=== PATIENT | male | born 1950 | race Two or more races ===

== ENCOUNTER 2019-02-09 06:13 | Inpatient (IN) | payer MEDICARE, BC ==
[2019-02-09 06:52] LABS: Basophils % (A) 0 %; Eosinophils # (A) 0.1 k/uL (0-0.7); Eosinophils % (A) 2 %; HCT 43.8 % (39.0-53.0); HGB 14.3 gm/dL (13.0-17.5); Lymphocytes # (A) 0.8 k/uL (1.0-4.8); Lymphocytes % (A) 12 %; MCH 29.6 pg (25.0-35.0); MCHC 32.7 g/dL (31.0-37.0); MCV 90.4 fL (80.0-100.0); Mean Platelet Volume 6.8; Monocytes # (A) 0.3 k/uL (0-1.0); Monocytes % (A) 5 %; Neutrophils # (A) 5.6 k/uL (1.3-7.7); Neutrophils % (A) 81 %; Platelet Count 197 k/uL (150-450); RBC 4.84 m/uL (4.30-5.90); RDW 13.1 % (11.5-15.5)
--- NOTE | 2019-02-09 06:58 | XR ---
EXAMINATION TYPE: XR chest 2V DATE OF EXAM: 02/09/2019 COMPARISON: Chest x-ray March 12, 2018 HISTORY: Chest pain. TECHNIQUE: Frontal and lateral views of the chest are obtained. FINDINGS: Overlying EKG leads are present. There is no focal air space opacity, pleural effusion, or pneumothorax seen. The cardiac silhouette size is within normal limits. The osseous structures are intact. IMPRESSION: No acute process. No significant change from prior.
[2019-02-09 07:19] LABS: ALT 30 U/L (21-72); AST 16 U/L (17-59); Albumin 3.8 g/dL (3.5-5.0); Alkaline Phosphatase 61 U/L (38-126); Anion Gap 6 mmol/L; Blood Urea Nitrogen 11 mg/dL (9-20); Calcium 9.4 mg/dL (8.4-10.2); Carbon Dioxide 28 mmol/L (22-30); Chloride 106 mmol/L (98-107); Glucose 142 mg/dL (74-99); Magnesium 1.7 mg/dL (1.6-2.3); Potassium 3.8 mmol/L (3.5-5.1); Sodium 140 mmol/L (137-145); Total Bilirubin 1.1 mg/dL (0.2-1.3); Total Protein 6.6 g/dL (6.3-8.2)
[2019-02-09 07:28] LABS: Partial Thromboplastin Time 21.6 sec (22.0-30.0); Prothrombin Time 10.7 sec (9.0-12.0)
[2019-02-09] MEDS ORDERED: HEPARIN SODIUM,PORCINE 5,000 UNIT/ML 1 ML VIAL IV ONE (07:55)
--- NOTE | 2019-02-09 08:05 | ED ---
Chest Pain HPI - General Chief Complaint: Chest Pain Stated Complaint: chest pain Time Seen by Provider: 02/09/19 06:14 Source: patient, family, EMS Mode of arrival: EMS Limitations: no limitations - History of Present Illness Initial Comments: Patient is a 68-year-old male who presents the ED today via EMS for evaluation of chest pain lightheadedness and near-syncope. Patient reports he woke this morning and had some slight retrosternal chest pressure he went downstairs to drink some tea with honey however his vision began to darken and he felt like he was given a pass out. He attempted to call his on her cell phone because she was upstairs that she didn't answer. He was then able to walk upstairs but upon getting up stairs he again fell his vision darkened felt that he was going to pass out. He asked his to drive him to the hospital however he felt too unwell to get up off the floor and then requested that his call 911. Patient reports he was seen and evaluated by cardiology approximately 3 years ago he has not followed up. He has no known cardiac disease no known arrhythmias. He is a nonsmoker. EMS reports that when they arrived on scene the patient was noted to be bradycardic with a heart rate in the 30s and a blood pressure of 80s over 50s. IV access was obtained less than 100 mL of fluids were infused and the patients heart rate improved to the 70s blood pressure improved to 1 teens over 70s. Patient remains stable during transport. - Related Data Home Medications Medication Instructions Recorded Confirmed Aspirin EC [Ecotrin Low Dose] 81 mg PO DAILY 02/09/19 02/09/19 Ubidecarenone [Co Q-10] 100 mg PO DAILY 02/09/19 02/09/19 Allergies Allergy/AdvReac Type Severity Reaction Status Date / Time No Known Allergies Allergy Verified 02/09/19 07:38 Review of Systems ROS Statement: Those systems with pertinent positive or pertinent negative responses have been documented in the HPI. ROS Other: All systems not noted in ROS Statement are negative. EKG Findings - EKG Comments: EKG Findings:: EKG obtained at 6:23 AM, rate of 74 rhythm is sinus there is leftward axis normal intervals, ND 160, QRS [address] elevations or depressions no evidence of acute ischemia or infarction Past Medical History Past Medical History: No Reported History History of Any Multi-Drug Resistant Organisms: None Reported Past Surgical History: Hernia Repair, Orthopedic Surgery Past Psychological History: Anxiety Smoking Status: Never smoker Past Alcohol Use History: Occasional Past Drug Use History: None Reported General Exam - General Exam Comments Initial Comments: Physical Exam GENERAL: Patient is well-developed and well-nourished. Patient is nontoxic and well- hydrated and is in no distress. HENT: Normocephalic, Atraumatic. EYES: PERRL, EOMI PULMONARY: Unlabored respirations. No audible rales rhonchi or wheezing was noted. CARDIOVASCULAR: There is a regular rate and rhythm without any murmurs gallops or rubs. ABDOMEN: Soft and nontender with normal bowel sounds. SKIN: Skin is clear with no lesions or rashes and otherwise unremarkable. : Deferred NEUROLOGIC: Patient is alert and oriented x3. Moving all extremities spontaneously MUSCULOSKELETAL: Normal extremities with adequate strength and full range of motion. No lower extremity swelling or edema. No calf tenderness. PSYCHIATRIC: Normal psychiatric evaluation. Limitations: no limitations Limitations: no limitations Course Vital Signs 02/09/19 02/09/19 06:17 07:55 Temperature 97.9 F Pulse Rate 63 79 Respiratory 16 18 Rate Blood Pressure 104/78 97/78 O2 Sat by Pulse 98 95 Oximetry Chest Pain MDM - [facility] Patient was seen and evaluated history was obtained from patient and EMS Patient with near syncopal episode chest pressure discomfort, patient is noted be hypertensive and bradycardic upon EMS arrival this resolved with IV fluids Cardiac workup was initiated and an EKG was ordered for evaluation of chest pain except EKG is nonischemic bedside labs are unremarkable however given the patient's age, risk factors and vital signs upon EMS arrival I do feel he warrants further evaluation by cardiology. Patient care was discussed with admitting physician Dr. Pham who accepts the admission with consult to cardiology. Disposition Clinical Impression: Chest pain Disposition: ADMITTED IP TO THIS HOSP Condition: Stable Is patient prescribed a controlled substance at d/c from ED?: No Referrals: Augustin Dixon MD [Primary Care Provider] - 1-2 days
[2019-02-09] MEDS: HEPARIN SOD,PORK IN 0.45% NACL 25,000 UNIT in 0.45% NACL 1 250ML.BAG IV SCH (08:24)
--- NOTE | 2019-02-09 13:47 | ECHOF ---
Referral Reason:chest pain MEASUREMENTS -------- HEIGHT: 175.3 cm WEIGHT: 75.7 kg BP: 107/78 RVIDd: 2.9 cm (< 3.3) IVSd: 1.3 cm (0.6 - 1.1) LVIDd: 3.4 cm (3.9 - 5.3) LVPWd: 1.2 cm (0.6 - 1.1) IVSs: 1.8 cm LVIDs: 2.3 cm LVPWs: 1.6 cm LA Diam: 2.9 cm (2.7 - 3.8) LAESV Index (A-L): 24.77 ml/m Ao Diam: 3.7 cm (2.0 - 3.7) AV Cusp: 2.0 cm (1.5 - 2.6) MV EXCURSION: 12.972 mm (> 18.000) MV EF SLOPE: 36 mm/s (70 - 150) EPSS: 0.5 cm MV E Denzel: 0.76 m/s MV DecT: 298 ms MV A Denzel: 0.93 m/s MV E/A Ratio: 0.81 RAP: 5.00 mmHg RVSP: 27.81 mmHg FINDINGS -------- Sinus rhythm. This was a technically good study. The left ventricular size is normal. There is mild concentric left ventricular hypertrophy. Overa ll left ventricular systolic function is normal with, an EF between 60 - 65 %. The right ventricle is normal in size. Normal LA size by volume 22+/-6 ml/m2. The right atrium is normal in size. The aortic valve is trileaflet and appears structurally normal. The mitral valve is normal. The tricuspid valve appears structurally normal. There is no pulmonic regurgitation present. The aortic root size is normal. Normal inferior vena cava with normal inspiratory collapse consistent with estimated right atrial pre ssure of 5 mmHg. There is no pericardial effusion. CONCLUSIONS -------- 1. Sinus rhythm. 2. This was a technically good study. 3. The left ventricular size is normal. 4. There is mild concentric left ventricular hypertrophy. 5. Overall left ventricular systolic function is normal with, an EF between 60 - 65 %. 6. The right ventricle is normal in size. 7. Normal LA size by volume 22+/-6 ml/m2. 8. The right atrium is normal in size. 9. The aortic valve is trileaflet and appears structurally normal. 10. The mitral valve is normal. 11. The tricuspid valve appears structurally normal. 12. There is no pulmonic regurgitation present. 13. The aortic root size is normal. 14. Normal inferior vena cava with normal inspiratory collapse consistent with estimated right atrial pressure of 5 mmHg. 15. There is no pericardial effusion. COLLATOR: Roseann Avila RDCS
[2019-02-09] MEDS ORDERED: HEPARIN SODIUM,PORCINE 5,000 UNIT/ML 1 ML VIAL IV PRN (15:42)
--- NOTE | 2019-02-09 17:15 | CONS ---
CONSULTATION Mr. Osborne is a 68-year-old gentleman who is seen for the cardiac evaluation. The history was mostly obtained from the chart. Patient is a rather unreliable historian. This patient was brought by EMS with the symptoms of lightheadedness and near-syncope and chest discomfort. The patient gives a history that he woke up this morning. Patient had slight chest discomfort in the substernal area. He went downstairs to drink some tea with honey. However, he became lightheaded and he felt like he was going to pass out. The patient tried to call his , but she did not answer. The patient was then able to walk up stairs, but upon getting upstairs, again felt that he was blurry and he was going to pass out. The patient asked his to call 911 and he was brought to the hospital. When the EMS arrived, patient's heart rate was low in the 30s and the blood pressure was 80-90. Patient received the fluids with improvement in the symptoms. The patient gives a history that he has a history suggestive of panic attacks and has been having occasional dizzy spells in the past. PAST MEDICAL HISTORY: Includes a hernia repair and orthopedic surgery. SOCIAL HISTORY: Smoking history: Patient was never a smoker. REVIEW OF THE SYSTEM: Otherwise unremarkable. PHYSICAL EXAMINATION: At present reveals a 68-year-old gentleman who is doing thinly built, does not appear to be in any acute distress. The heart rate is 62 per minute, blood pressure is 134/90 mmHg. HEENT examination is negative. Neck is supple. There is no increase in jugular venous pressure. Both the carotid pulses are felt. There is no bruit. Chest is symmetrical. Heart: The PMI is not felt. First and second heart sounds are heard. Lungs are clinically clear to auscultation and percussion. Abdomen is soft. Liver and spleen are not enlarged. Bowel sounds are heard. Extremities: Peripheral pulses are 2+. EKG shows normal sinus rhythm without any acute ischemic changes. Patient's initial troponin and electrolytes are normal. FINAL IMPRESSION: This patient is admitted with the symptoms suggestive of chest pain and syncope, exact etiology undetermined. Rule out acute coronary syndrome. Serial EKGs and cardiac enzymes will be obtained. A possibility of vasovagal syncope is also entertained. We will also order a D-dimer test to rule out any evidence of pulmonary embolism. Depending upon the echo and Doppler study will be done. Thank you for this consultation. MMTONL / IJN: [id number] /
[2019-02-09] MEDS: SODIUM CHLORIDE 0.9% 1,000 ML IV SCH (19:54)
--- NOTE | 2019-02-09 22:44 | P.HPIM ---
History of Present Illness H&P Date: 02/09/19 Chief Complaint: Chest pain Patient is a 68-year-old male with a known history of GERD, anxiety with history of palpitations, bilateral glaucoma and other medical problems came to ER with the complaints of chest pain and shortness of breath. Patient says that he woke up around 5 AM this morning and felt left retrosternal chest pain/pressure. He went downstairs to drink some tea with honey however his vision began to darken and he felt like he was given a pass out. He attempted to call his on her cell phone because she was upstairs that she didn't answer. He was then able to walk upstairs but upon getting up stairs he again fell his vision darkened felt that he was going to pass out. He asked his to drive him to the hospital however he felt too unwell to get up off the floor and then requested that his call 911. Patient was found to be bradycardic with heart rate in 30s and blood pressure 80s over 50s when the EMS arrived. Patient was given IV fluids enroute to the hospital. Currently blood pressure is improved. Chest pain is associated with sweating. Patient also felt nauseated. No episodes of vomiting. No radiation of the pain. Patient was given nitroglycerin which seems to relieve his pain. Currently patient is not complaining of any chest pain now. Troponin 0.012 and 0.215, 0.135 D-dimer not elevated. Review of Systems Constitutional: Patient denies any fever or chills . No generalized weakness or weight loss. Abdomen: Patient denied nausea vomiting and diarrhea and abdominal pain. Cardiovascular: Patient denies any chest pain or short of breath no palpitations. Respiratory: patient denied any cough is from production. No shortness of breath Neurologic: Patient denied any numbness or tingling headache. Musculoskeletal: Patient denies any complaints of joint swelling or deformity. Skin: Negative Psychiatric: Negative Endocrine: No heat or cold intolerance. No recent weight gain. Genitourinary: No dysuria or hematuria. All other 14 point ROS negative except the above Past Medical History Past Medical History: Eye Disorder, GERD/Reflux, Pneumonia Additional Past Medical History / Comment(s): Palpitations/ elevated heart rate which pt states have been attributed to anxiety, last stress test 3-4 yrs ago and normal, recent sinus issues, pneumonia as a child, kidney stone which pt passed on his own, R elbow pain past 4 months from tennis injury, past fractured R elbow, R inguinal hernia, frequent night time urination-prostate checked and normal and pt is to have his bladder checked, bilateral eye glaucoma and start of cataracts-has some visual difficulty History of Any Multi-Drug Resistant Organisms: None Reported Past Surgical History: Hernia Repair, Orthopedic Surgery Additional Past Surgical History / Comment(s): L inguinal hernia repair, R shoulder surgery for fractured clavicle and ligament repair, L knee arthroscopy. Past Anesthesia/Blood Transfusion Reactions: No Reported Reaction, Motion Sickness Smoking Status: Never smoker - Past Family History Father Additional Family Medical History / Comment(s): Father did not go to the doctor's much. He was a smoker and a drinker and at the age of 80yrs. Mother Family Medical History: Dementia Additional Family Medical History / Comment(s): Mother at the age of 80 fr om alzheimer's. She had heart problems. Medications and Allergies Home Medications Medication Instructions Recorded Confirmed Type Aspirin EC [Ecotrin Low Dose] 81 mg PO DAILY 02/09/19 02/09/19 History Ubidecarenone [Co Q-10] 100 mg PO DAILY 02/09/19 02/09/19 History Allergies Allergy/AdvReac Type Severity Reaction Status Date / Time No Known Allergies Allergy Verified 02/09/19 07:38 Physical Exam Vitals: Vital Signs Temp Pulse Resp BP Pulse Ox 02/09/19 11:30 58 L 116/81 02/09/19 11:00 62 112/81 02/09/19 10:30 63 122/84 97 02/09/19 10:00 62 114/78 02/09/19 09:30 65 99/74 100 02/09/19 09:00 61 107/78 95 02/09/19 08:30 64 17 104/79 97 02/09/19 08:00 66 18 97/78 93 L 02/09/19 07:55 65 17 97/78 94 L 02/09/19 06:17 97.9 F 63 16 104/78 98 Intake and Output 02/08/19 02/09/19 02/09/19 22:59 06:59 14:59 Other: Weight 75.75 kg PHYSICAL EXAMINATION: Patient is lying in the bed comfortably, no acute distress, awake alert and orie nted.. HEENT: Normocephalic. Neck is supple. Pupils reactive. Nostrils clear. Oral cavity is moist. Ears reveal no drainage. Neck reveals no JVD, carotid bruits, or thyromegaly. CHEST EXAMINATION: Trachea is central. Symmetrical expansion. Lung carrillo clear to auscultation and percussion. CARDIAC: Normal S1, S2 with no gallops. No murmurs ABDOMEN: Soft. Bowel sounds normal. No organomegaly. No abdominal bruits. Extremities: reveal no edema. No clubbing or cyanosis Neurologically awake, alert, oriented x3 with well-coordinated movements. No focal deficits noted Skin: No rash or skin lesions. Psychiatric: Coperative. Nonsuicidal Musculoskeletal: No joint swelling or deformity. Normal range of motion. Results CBC & Chem 7: 02/09/19 06:29 02/09/19 06:29 Labs: Abnormal Lab Results - Last 24 Hours (Table) 02/09/19 02/09/19 02/09/19 Range/Units 06:29 06:29 06:29 Lymphocytes # 0.8 L (1.0-4.8) k/uL APTT 21.6 L (22.0-30.0) sec Glucose 142 H (74-99) mg/dL AST 16 L (17-59) U/L Thrombosis Risk Factor Assmnt - DVT/VTE Prophylaxis DVT/VTE Prophylaxis: Pharmacologic Prophylaxis ordered - Choose All That Apply Any of the Below Risk Factors Present?: Yes Other Risk Factors: Yes Each Risk Factor Represents 2 Points: Age 61-74 years Other congenital or acquired thrombophilia - If yes, enter type in comment: No Thrombosis Risk Factor Assessment Total Risk Factor Score: 2 Thrombosis Risk Factor Assessment Level: Low Risk Assessment and Plan Assessment: Chest pain with elevated troponin. Likely due to non-ST elevated [place] Hypotension and Symptomatic bradycardia on admission. Improved now History of palpitations and anxiety with negative stress test 3-4 years ago GERD Plan: Patient will be started on IV heparin. Serial troponins and EKG. Consult with aspirin and check lipid profile. Cardiology was consulted. Further recommendations based on the clinical course. Time with Patient: Greater than 30
[2019-02-10] MEDS: SODIUM CHLORIDE 0.9% 1,000 ML IV SCH ×3 (03:55→21:45)
[2019-02-10 07:26] LABS: Cholesterol 143 mg/dL (<200); HDL Cholesterol 47 mg/dL (40-60); LDL Cholesterol,Calculated 89 mg/dL (0-99); Triglycerides 35 mg/dL (<150)
[2019-02-10] MEDS ORDERED: ALPRAZolam 0.25 MG TAB PO PRN (08:08)
[2019-02-10] MEDS ORDERED: ALPRAZolam 0.5 MG TAB PO PRN (08:08)
[2019-02-10] MEDS ORDERED: SODIUM CHLORIDE 0.9% 1,000 ML in EMPTY BAG 1 BAG IV ONE (08:08)
[2019-02-10] MEDS ORDERED: NITROGLYCERIN SL TABS 0.4 MG TAB SUBLINGUAL PRN (08:08)
[2019-02-10] MEDS ORDERED: ATORVASTATIN 80 MG TAB PO STA (08:10)
[2019-02-10] MEDS ORDERED: ASPIRIN 325 MG TAB PO STA (08:10)
[2019-02-10] MEDS ORDERED: ASPIRIN 325 MG TAB PO SCH (09:00)
[2019-02-10] MEDS ORDERED: NON-FORMULARY DRUG (Ubidecarenone [Co Q-10] 100 MG) PO SCH (09:00)
[2019-02-10] MEDS ORDERED: fentaNYL (PF) 50 MCG/ML 2 ML AMP ONE (09:09)
[2019-02-10] MEDS ORDERED: LIDOCAINE 1% INJ 10MG/ML (20 ML MDV) ONE (09:09)
[2019-02-10] MEDS: HEPARIN SOD,PORK IN 0.45% NACL 25,000 UNIT in 0.45% NACL 1 250ML.BAG IV SCH (09:17)
[2019-02-10] MEDS ORDERED: LIDOCAINE 1% INJ 10MG/ML (20 ML MDV) SQ ONE (09:43)
[2019-02-10] MEDS ORDERED: MIDAZOLAM 2 MG/2 ML VIAL IVP ONE (09:43)
[2019-02-10] MEDS ORDERED: fentaNYL (PF) 50 MCG/ML 2 ML AMP IVP ONE (09:43)
[2019-02-10] MEDS ORDERED: IV FLUID CONTINUATION 600 ML IV ONE (09:45)
[2019-02-10] MEDS ORDERED: IOPAMIDOL-370 50ML BTL INJ ONE (10:02)
[2019-02-10] MEDS ORDERED: IOPAMIDOL-370 125ML BTL INJ ONE (10:03)
--- NOTE | 2019-02-10 10:55 | CC ---
CARDIAC CATHETERIZATION REPORT Mr. Osborne came to the emergency room with a complaint of chest discomfort and syncope. The patient was bradycardic and hypotensive when the EMS arrived. Subsequently in the emergency room, patient's EKG did not show any acute ischemic changes, but troponin went up to 0.2. In view of that, the patient was recommended to have a cardiac catheterization for definitive diagnosis. PROCEDURE: The right groin was prepped and draped in the usual manner and the skin was infiltrated with 2% Xylocaine. The right femoral artery was entered using Seldinger technique and #6-Panamanian sheath was placed in. Selective coronary angiography was then performed in multiple projections and the left ventriculography was performed in 30-degree BERNAL projection. Patient tolerated the procedure well. HEMODYNAMICS: Left ventricular end-diastolic pressure is 12 mmHg prior to angiography. No gradient is noted across the aortic valve. SELECTIVE CORONARY ANGIOGRAPHY: Left main coronary artery is normal and patent. LAD is a good caliber blood vessel and gives rise to good size diagonal branch. LAD and its branches are normal. Circumflex coronary artery is a codominant distribution. Gives rise to good-size PLV branch. Circumflex and its coronary artery branches are normal. Right coronary artery is a normal caliber blood vessel and gives rise to small size PDA and PLV branches which are normal. Left ventriculography reveals normal left ventricular systolic functions. FINAL IMPRESSION: This study reveals normal coronary arteries. Left ventricular systolic function is normal. Moderate sedation was used. Sedation time was 23 minutes. MMANASTASIYA / NOREENN: [id number] /
[2019-02-10] MEDS ORDERED: RX INFO: IV CONTRAST WAS GIVEN 1 EACH MISC MISCELLANE PRN (11:37)
[2019-02-10] MEDS ORDERED: MORPHINE SULFATE/PF 10MG/10ML VL IVP STA (14:51)
[2019-02-10] MEDS ORDERED: HYDROmorphone 1 MG/ML 1 ML SYRINGE IVP STA (14:54)
--- NOTE | 2019-02-10 16:52 | US ---
EXAMINATION TYPE: US lower ext pseudo artery RT DATE OF EXAM: 02/10/2019 COMPARISON: NONE CLINICAL HISTORY: 68-year-old male hematoma. EXAM PERFORMED: Grayscale and color Doppler duplex imaging performed of the groin, post cardiac kaitlin ter to assess for pseudoaneurysm. SIDE PERFORMED: Right Color and Waveform Doppler performed to assess for the presence of pseudoaneurysm; FINDINGS: Is there ultrasound evidence of a pseudoaneurysm: no Is there evidence of AV shunting: no Is there a fluid collection present: no [employer] Technician notes:There does appear to be a hernia, patient states he has had one for many years at t he patient's area of pain IMPRESSION: 1. No sonographic evidence for right groin pseudoaneurysm. 2. Large abnormality seen in the right groin seems to correspond to an inguinal hernia which the rehana ent reports is a known finding. Further clinical correlation recommended. If this is felt to be a new finding or if there is concern for a concurrent hematoma, CT can be considered.
--- NOTE | 2019-02-11 00:07 | P.PN ---
Subjective Progress Note Date: 02/10/19 Principal diagnosis: Chest pain Patient is a 68-year-old male with a known history of GERD, anxiety with history of palpitations, bilateral glaucoma and other medical problems came to ER with the complaints of chest pain and shortness of breath. Patient says that he woke up around 5 AM this morning and felt left retrosternal chest pain/pressure. He went downstairs to drink some tea with honey however his vision began to darken and he felt like he was given a pass out. He attempted to call his on her cell phone because she was upstairs that she didn't answer. He was then able to walk upstairs but upon getting up stairs he again fell his vision darkened felt that he was going to pass out. He asked his to drive him to the hospital however he felt too unwell to get up off the floor and then requested that his call 911. Patient was found to be bradycardic with heart rate in 30s and blood pressure 80s over 50s when the EMS arrived. Patient was given IV fluids enroute to the hospital. Currently blood pressure is improved. Chest pain is associated with sweating. Patient also felt nauseated. No episodes of vomiting. No radiation of the pain. Patient was given nitroglycerin which seems to relieve his pain. Currently patient is not complaining of any chest pain now. Troponin 0.012 and 0.215, 0.135 D-dimer not elevated. 02/10/2019 Patient denied any complaints of chest pain or shortness of breath today. Patient is status post cardiac catheterization. No PCI required. Patient denied any other complaints. Right groin duplex scan showed no evidence of pseudoaneurysm. Anticipate discharge in next 24 hours with cardiology clearance. Current medications reviewed. Objective - Vital Signs Vital signs: Vital Signs Temp 98.1 F 02/10/19 20:00 Pulse 70 02/10/19 20:00 Resp 20 02/10/19 20:00 BP 142/78 02/10/19 20:00 Pulse Ox 97 02/10/19 20:00 Intake & Output 02/10/19 02/10/19 02/11/19 06:59 18:59 06:59 Intake Total 800 200 Output Total 600 Balance 800 -400 Weight 73.8 kg Intake: IV 200 Intake, IV Titration 800 Amount Sodium Chloride 0.9% 1, 800 000 ml @ 100 mls/hr IV . Q10H KENDRICK Rx#:[id number] Oral 0 Output: Urine 600 Other: Voiding Method Toilet Toilet Toilet # Voids 1 - Exam PHYSICAL EXAMINATION: Patient is lying in the bed comfortably, no acute distress, awake alert and oriented.. HEENT: Normocephalic. Neck is supple. Pupils reactive. Nostrils clear. Oral cavity is moist. Ears reveal no drainage. Neck reveals no JVD, carotid bruits, or thyromegaly. CHEST EXAMINATION: Trachea is central. Symmetrical expansion. Lung carrillo clear to auscultation and percussion. CARDIAC: Normal S1, S2 with no gallops. No murmurs ABDOMEN: Soft. Bowel sounds normal. No organomegaly. No abdominal bruits. Extremities: reveal no edema. No clubbing or cyanosis Neurologically awake, alert, oriented x3 with well-coordinated movements. No focal deficits noted Skin: No rash or skin lesions. Psychiatric: Coperative. Nonsuicidal Musculoskeletal: No joint swelling or deformity. Normal range of motion. - Labs CBC & Chem 7: 02/09/19 06:29 02/09/19 06:29 Labs: Abnormal Lab Results - Last 24 Hours (Table) 02/10/19 02/10/19 02/10/19 Range/Units 00:17 06:32 06:32 APTT 52.7 H (22.0-30.0) sec Troponin I 0.096 H* 0.063 H* (0.000-0.034) ng/mL Assessment and Plan Assessment: Chest pain with elevated troponin. Likely due to non-ST elevated [place] Hypotension and Symptomatic bradycardia on admission. Improved now History of palpitations and anxiety with negative stress test 3-4 years ago GERD Plan: Patient is status post cardiac catheterization. No PCI. Consult with aspirin and LDL 80. Cardiology is following. Further recommendations based on the clinical course. Time with Patient: Greater than 30
[2019-02-11] MEDS: SODIUM CHLORIDE 0.9% 1,000 ML IV SCH (08:37)
[2019-02-11] MEDS ORDERED: ASPIRIN 325 MG TAB PO SCH (09:00)
[2019-02-11] MEDS ORDERED: ASPIRIN 81 MG PO SCH (09:00)
[2019-02-11 10:09] VITALS: RESP 18
--- NOTE | 2019-02-11 11:01 | P.GSCN ---
History of Present Illness Consult date: 02/11/19 History of present illness: This is 68-year-old male initially presented with syncope and underwent a heart catheterization 24 hours ago. He has had pain in his right groin since the heart cath. The right groin was the access site for the catheterization. He underwent ultrasound which did not show a large pseudoaneurysm. He denies any nausea vomiting he denies any obstructive symptoms. He does have a history of a right inguinal hernia. There was some concern for an incarcerated right inguinal hernia that was causing the pain versus hematoma. Therefore general surgery was consulted. Past Medical History Past Medical History: Eye Disorder, GERD/Reflux, Pneumonia Additional Past Medical History / Comment(s): Palpitations/ elevated heart rate which pt states have been attributed to anxiety, last stress test 3-4 yrs ago and normal, recent sinus issues, pneumonia as a child, kidney stone which pt passed on his own, R elbow pain past 4 months from tennis injury, past fractured R elbow, R inguinal hernia, frequent night time urination-prostate checked and normal and pt is to have his bladder checked, bilateral eye glaucoma and start of cataracts-has some visual difficulty History of Any Multi-Drug Resistant Organisms: None Reported Past Surgical History: Hernia Repair, Orthopedic Surgery Additional Past Surgical History / Comment(s): L inguinal hernia repair, R shoulder surgery for fractured clavicle and ligament repair, L knee arthroscopy. Past Anesthesia/Blood Transfusion Reactions: No Reported Reaction, Motion Sickness Smoking Status: Never smoker - Past Family History Father Additional Family Medical History / Comment(s): Father did not go to the doctor's much. He was a smoker and a drinker and at the age of 80yrs. Mother Family Medical History: Dementia Additional Family Medical History / Comment(s): Mother at the age of 80 from alzheimer's. She had heart problems. Medications and Allergies Home Medications Medication Instructions Recorded Confirmed Type Aspirin EC [Ecotrin Low Dose] 81 mg PO DAILY 02/09/19 02/09/19 History Ubidecarenone [Co Q-10] 100 mg PO DAILY 02/09/19 02/09/19 History Allergies Allergy/AdvReac Type Severity Reaction Status Date / Time No Known Allergies Allergy Verified 02/09/19 07:38 Surgical - Exam Osteopathic Statement: *. No significant issues noted on an osteopathic structural exam other than those noted in the History and Physical/Consult. Vital Signs Temp Pulse Resp BP Pulse Ox 97.9 F 63 16 104/78 98 02/09/19 06:17 02/09/19 06:17 02/09/19 06:17 02/09/19 06:17 02/09/19 06:17 - General well developed, well nourished, no distress - Respiratory normal expansion, normal respiratory effort - Cardiovascular Rhythm: regular - Abdomen There is tenderness to palpation in the right groin. There is a small palpable right inguinal hernia. It is difficult to ascertain whether this is an incarcerated hernia versus a hematoma. Abdomen: soft, non tender - Musculoskeletal normal gait - Psychiatric oriented to time, oriented to person, oriented to place Results - Labs 02/09/19 06:29 02/09/19 06:29 Assessment and Plan Assessment: Right groin pain secondary to hematoma versus inguinal hernia. Plan: Patient does not have obstructive symptoms at this time which lowers concern for incarcerated small bowel. Patient is significantly tender this could be secondary to small hematoma at the right groin access site versus incarcerated fat. I discussed obtaining a computed tomography scan to further evaluate right groin pain. Further recommendations to follow to computed tomography scan. Thank you for allowing me to participate in this patients care
[2019-02-11 12:10] VITALS: BP 155/89; PULSE 81; TEMP 98
--- NOTE | 2019-02-11 12:22 | CT ---
EXAMINATION TYPE: CT abdomen pelvis w con DATE OF EXAM: 02/11/2019 COMPARISON: None HISTORY: Right sided groin swelling CT DLP: 708.6 mGycm CONTRAST: CT scan of the abdomen and pelvis is performed without Oral Contrast and with IV Contrast, patient in jected with 100 mL of Isovue 300. FINDINGS: LUNG BASES-: No visible nodule. No infiltrate. LIVER/GB: No calcified gallstones. No space occupying hepatic lesion. Biliary tree is of normal ca liber. PANCREAS: No inflammation. No distinct mass. SPLEEN: No splenic enlargement. No lesion seen. ADRENALS: No nodule. No thickening. KIDNEYS/BLADDER: No hydronephrosis. No nephrolithiasis. No distinct renal mass. Urinary bladder g rossly unremarkable. BOWEL: Nonvisualization of the appendix. Mild inflammatory changes right lower quadrant of uncertain etiology. Correlate clinically. Normal bowel caliber. No inflammation. Small amount of fluid right p aracolic gutter. GENITAL ORGANS: No gross abnormality. LYMPH NODES: No greater than 1cm abdominal or pelvic lymph nodes are appreciated. AORTA: No significant abnormality. OSSEOUS STRUCTURES: No significant abnormality is seen. OTHER: Right inguinal hematoma noted measuring 4.7 x 4.4 cm. Surgical clips left inguinal region. IMPRESSION: 1. Right inguinal hematoma. 2.Nonvisualization of the appendix. Mild inflammatory changes right lower quadrant of uncertain etiol ogy. Correlate clinically. Small amount of fluid right paracolic gutter.
--- NOTE | 2019-02-11 13:19 | P.PN ---
Subjective Progress Note Date: 02/11/19 This is a 68-year-old gentleman admitted to the hospital with syncopal episode. He was found to have abnormality in his troponin. D-dimer negative. He underwent a cardiac catheterization which did not reveal any significant obstructive coronary artery disease. Yesterday afternoon he got up to go to the bathroom, felt significant pain in his right groin. He was placed back into the bed, it appeared that the patient had a hematoma with also presence of a right inguinal hernia protrusion. Pressure was held, FemoStop applied. Ultrasound of the groin did not reveal any evidence of a hematoma or pseudoaneurysm. Patient was still quite tender in the right inguinal hernia area and for this reason a surgical consultation was requested today. Patient was seen and evaluated by Dr. dowell and recommended to undergo a computed tomography scan. Hemodynamically the patient has been stable. Computed tomography scan of the groin did show right inguinal hematoma. Objective - Vital Signs Vital signs: Vital Signs Temp 98 F 02/11/19 12:00 Pulse 81 02/11/19 12:00 Resp 18 02/11/19 12:00 BP 155/89 02/11/19 12:00 Pulse Ox 97 02/11/19 12:00 Intake & Output 02/10/19 02/11/19 02/11/19 18:59 06:59 18:59 Intake Total 200 640 Output Total 600 500 600 Balance -400 -500 40 Weight 74.2 kg Intake: IV 200 Oral 0 640 Output: Urine 600 500 600 Other: Voiding Method Toilet Urinal Urinal # Voids 1 1 - Exam PHYSICAL EXAMINATION: GENERAL: 68-year-old gentleman in no acute distress at the time of my examination HEENT: Head is atraumatic, normocephalic. Pupils equal, round. Sclera anicteric. Conjunctiva are clear. Mucous membranes of the mouth are moist. Neck is supple. There is no elevated jugular venous pressure. No carotid bruit is heard. HEART EXAMINATION: Heart S1, S2 normal. No murmur or gallop heard. CHEST EXAMINATION: Lungs are clear to auscultation and precussion. No chest wall tenderness is noted on palpation or with deep breathing. ABDOMEN: Soft, nontender. Bowel sounds are heard. No organomegaly noted. EXTREMITIES: 2+ peripheral pulses with no evidence of peripheral edema and no c luis tenderness noted. Right groin is tenderness, small palpable right inguinal hernia, difficult to determine whether this is an incarcerated hernia versus hematoma NEUROLOGIC patient is awake, alert and oriented 3 . . - Labs CBC & Chem 7: 02/09/19 06:29 02/09/19 06:29 Assessment and Plan Plan: Assessment and plan #1 syncope, abnormal troponins, d-dimer negative, status post cardiac catheterization which did not reveal any obstructive coronary artery disease. #2 GERD Plan Cardiology's perspective, patient may be able to be discharged home if cleared by surgery. We'll make him a follow-up appointment to see Dr. Vieira in the office post discharge. DNP note has been reviewed, I agree with a documented findings and plan of care. Patient was seen and examined.
--- NOTE | 2019-02-11 16:02 | P.DS ---
Providers Date of admission: 02/10/19 09:13 Attending physician: Jose Mims Consults: 02/09/19 07:55 Consult Physician Urgent Consulting Provider: [facility] Consult Reason/Comments: chest pain, bradycardia, hypotension, near syncope Do you want consulting provider notified?: Yes, Notify in am 02/11/19 09:04 Consult Physician Urgent Consulting Provider: Billy Cai Consult Reason/Comments: inguinal hernai Do you want consulting provider notified?: Yes Primary care physician: Zack Mike [facility] [place] [facility] Course: 68-year-old male with a known history of GERD, anxiety with history of palpitations, bilateral glaucoma and other medical problems came to ER with the complaints of chest pain and shortness of breath. Patient says that he woke up around 5 AM this morning and felt left retrosternal chest pain/pressure. He went downstairs to drink some tea with honey however his vision began to darken and he felt like he was given a pass out. He attempted to call his on her cell phone because she was upstairs that she didn't answer. He was then able to walk upstairs but upon getting up stairs he again fell his vision darkened felt that he was going to pass out. He asked his to drive him to the hospital however he felt too unwell to get up off the floor and then requested that his call 911. Patient was found to be bradycardic with heart rate in 30s and blood pressure 80s over 50s when the EMS arrived. Patient was given IV fluids enroute to the hospital. Currently blood pressure is improved. Chest pain is associated with sweating. Patient also felt nauseated. No episodes of vomiting. No radiation of the pain. Patient was given nitroglycerin which seems to relieve his pain. Currently patient is not complaining of any chest pain now. Troponin 0.012 and 0.215, 0.135 D-dimer not elevated. 02/10/2019 Patient denied any complaints of chest pain or shortness of breath today. Patient is status post cardiac catheterization. No PCI required. Patient denied any other complaints. Right groin duplex scan showed no evidence of pseudoaneurysm. Anticipate discharge in next 24 hours with cardiology clearance. 02/11/2019 patient's cardiac catheterization was complicated by right groin hematoma which is stable at this time. Patient also has inguinal hernia which is causing pain. Generous surgery evaluated the patient CAT scan was obtained w hich did not show any incarceration. Patient will be discharged with follow-up with general surgery as an outpatient patient is otherwise clinically doing well patient will be discharged on Prilosec for possible gastroesophageal reflux disease. PHYSICAL EXAMINATION: GENERAL: The patient is alert and oriented x3, not in any acute distress. Well developed, well nourished. HEENT: Pupils are round and equally reacting to light. EOMI. No scleral icterus. No conjunctival pallor. Normocephalic, atraumatic. No pharyngeal erythema. No thyromegaly. CARDIOVASCULAR: S1 and S2 present. No murmurs, rubs, or gallops. PULMONARY: Chest is clear to auscultation, no wheezing or crackles. ABDOMEN: Soft, nontender, nondistended, normoactive bowel sounds. No palpable organomegaly. MUSCULOSKELETAL: No joint swelling or deformity. EXTREMITIES: No cyanosis, clubbing, or pedal edema. Right groin hematoma and inguinal hernia NEUROLOGICAL: Gross neurological examination did not reveal any focal deficits. SKIN: No rashes. Assessment and plan Chest pain patient is status post cardiac catheterization which did not show any significant atherosclerotic coronary occlusive disease -Postoperative right groin hematoma stable at this time was monitored overnight -Gastroesophageal reflux disease -Right-sided inguinal hernia which is not incarcerated follow-up as an outpatient if cleared by cardiology and general surgery patient will be discharged today Patient Condition at Discharge: Stable Plan - Discharge Summary Discharge Rx Participant: No New Discharge Prescriptions: New Omeprazole [PriLOSEC] 40 mg PO AC-BRKFST #14 capsule. Continue Ubidecarenone [Co Q-10] 100 mg PO DAILY Aspirin EC [Ecotrin Low Dose] 81 mg PO DAILY Discharge Medication List Aspirin EC [Ecotrin Low Dose] 81 mg PO DAILY 02/09/19 [History] Ubidecarenone [Co Q-10] 100 mg PO DAILY 02/09/19 [History] Omeprazole [PriLOSEC] 40 mg PO AC-BRKFST #14 capsule. 02/11/19 [Rx] Follow up Appointment(s)/Referral(s): Augustin Dixon MD [Primary Care Provider] - 02/14/19 9:40 am (Thursday) Laura Vieira MD [STAFF PHYSICIAN] - 02/17/19 2:30 pm () Patient Instructions/Handouts: *Surgery [facility] - After Heart Catheterization - Industrial Trainer Instructions, Left Heart Catheterization (DC) Discharge Disposition: HOME SELF-CARE
--- NOTE | 2019-02-14 14:00 | CDI ---
Documentation Clarification Form Date: 02/14/19 From: Haley Thierry Opal Tinocotimothy, Bowstring Maker Hours-8:30 am & 5 pm Antoinette Admit Date: 02/10/2019 9:13:00 AM Patient Name: Elizabeth Osborne Visit Number: [id number] Discharge Date: 02/11/2019 4:13:00 PM ATTENTION: The Clinical Documentation Specialists (CDI) and [facility] Coding Staff appreciate your assistance in clarifying documentation. Please respond to the clarification below the line at the bottom and electronically sign. The CDI & [facility] Coding staff will review the response and follow-up if needed. Please note: Queries are made part of the Legal Health Record. If you have any questions, please contact the author of this message via ITS. Dr. Juani Mcguire The patients principal diagnosis has not been clearly identified and requires clarification. He presented as an observation with the following chest pain with elevated troponin. Likely due to non-ST elevated WA with hypotension and symptomatic bradycardia. He was admitted to inpatient on 02/10, prior to catherization. History/Risk factors: GERD, anxiety, glacuma, cataract Clinical Indicators: left retrosternal chest pain/pressure, sweating and nauseated. Lab findings: Troponin: <0.012, 0.215, 0.135, 0.096, 0.063 Cath report: reveals normal coronary arterids, left ventricular systolic function is normal Treatment: no new medications Consults: cardiology In your professional opinion, can you please clarify which diagnosis, after study, accounted for the patients presenting symptoms and was the reason chiefly responsible for the admission? Non-ST WA Chest pain Other (please specify) Chest pain MTDD
== END 2019-02-11 16:13 | disposition home or self-care (01) | DRG 287 ==
LOC: EC 06:13 → 1SOBS 07:55 → 3SCARD 19:47 → OBSVTOIN 02-10 09:13
PROVIDERS: ADMIT Hospitalist; ATTEND Hospitalist
PROC: B2151ZZ Fluoroscopy of Left Heart using Low Osmolar Contrast (ICD-10-PCS; 2019-02-10)
PROC: B2111ZZ Fluoroscopy of Multiple Coronary Arteries using Low Osmolar Contrast (ICD-10-PCS; principal; 2019-02-10 09:15)
DX: R07.9 Chest pain, unspecified (principal); L76.32 Postprocedural hematoma of skin and subcutaneous tissue following other procedure; I95.9 Hypotension, unspecified; R00.1 Bradycardia, unspecified; K40.90 Unilateral inguinal hernia, without obstruction or gangrene, not specified as recurrent; K21.9 Gastro-esophageal reflux disease without esophagitis; F41.9 Anxiety disorder, unspecified; H40.9 Unspecified glaucoma; H26.9 Unspecified cataract; Z79.82 Long term (current) use of aspirin; Z79.899 Other long term (current) drug therapy; Z87.01 Personal history of pneumonia (recurrent); Z87.442 Personal history of urinary calculi; Z87.81 Personal history of (healed) traumatic fracture; Y84.0 Cardiac catheterization as the cause of abnormal reaction of the patient, or of later complication, without mention of misadventure at the time of the procedure; Y92.230 Patient room in hospital as the place of occurrence of the external cause; Z81.2 Family history of tobacco abuse and dependence; Z81.1 Family history of alcohol abuse and dependence; Z82.0 Family history of epilepsy and other diseases of the nervous system
CPT/HCPCS: 36415; 71046; 74177; 80053; 80061; 83735; 84484; 85025; 85379; 85610; 85730; 93005; 93306; 93458; 93975; 94760; 96365; 96366; 96376; 99285

== ENCOUNTER 2024-12-05 09:29 | Day surgery (SDC) | payer BC, MEDICARE ==
[2024-12-05 10:05] LABS: Basophils % (A) 0 %; Eosinophils # (A) 0.1 k/uL (0-0.7); Eosinophils % (A) 1 %; HCT 43.7 % (39.0-53.0); HGB 14.5 gm/dL (13.0-17.5); Lymphocytes # (A) 1.3 k/uL (1.0-4.8); Lymphocytes % (A) 26 %; MCH 30.4 pg (25.0-35.0); MCHC 33.1 g/dL (31.0-37.0); MCV 91.6 fL (80.0-100.0); Monocytes # (A) 0.3 k/uL (0-1.0); Monocytes % (A) 7 %; Neutrophils # (A) 3.4 k/uL (1.3-7.7); Neutrophils % (A) 64 %; Platelet Count 181 k/uL (150-450); RBC 4.77 m/uL (4.30-5.90); RDW 12.8 % (11.5-15.5); WBC 5.3 k/uL (3.8-10.6)
[2024-12-05] MEDS: IV FLUID CONTINUATION 1,000 ML IV ONE (10:07)
[2024-12-05 10:21] LABS: ALT 16 U/L (4-49); AST 18 U/L (17-59); African American GFR (CKD) >90 (>60 ml/min/1.73 sqM); Albumin 4.2 g/dL (3.5-5.0); Alkaline Phosphatase 57 U/L (38-126); Anion Gap 8 mmol/L; Blood Urea Nitrogen 12 mg/dL (9-20); Calcium 9.3 mg/dL (8.4-10.2); Carbon Dioxide 28 mmol/L (22-30); Chloride 107 mmol/L (98-107); Glucose 89 mg/dL (74-99); Non-African American GFR(CKD) 89 (>60 ml/min/1.73 sqM); Potassium 3.6 mmol/L (3.5-5.1); Sodium 143 mmol/L (137-145); Total Bilirubin 0.7 mg/dL (0.2-1.3); Total Protein 7.1 g/dL (6.3-8.2)
[2024-12-05] MEDS: MIDAZOLAM 2 MG/2 ML VIAL IV ONE (10:58)
[2024-12-05 11:18] LABS: T4, Free (Free Thyroxine) 1.07 ng/dL (0.78-2.19)
[2024-12-05] MEDS ORDERED: fentaNYL (PF) 50 MCG/ML 2 ML AMP ONE (13:17)
[2024-12-05] MEDS ORDERED: MIDAZOLAM 2 MG/2 ML VIAL ONE (13:17)
[2024-12-05] MEDS ORDERED: ISOPROTERENOL 250 MCG/1.25 ML SYR IV ONE (13:17)
[2024-12-05] MEDS ORDERED: diphenhydrAMINE 50 MG/ML 1 ML VIAL ONE (13:17)
[2024-12-05] MEDS ORDERED: KETAMINE HCL IN 0.9 % NACL 50 MG/5 ML SYRINGE ONE (13:17)
[2024-12-05] MEDS ORDERED: PROPOFOL 10 MG/ML 20 ML VIAL IV ONE (13:17)
[2024-12-05] MEDS ORDERED: HYDROmorphone (PF) 1 MG/ML ONE (13:17)
[2024-12-05] MEDS: HEPARIN SODIUM,PORCINE 10,000 UNIT in SODIUM CHLORIDE 0.9% 1,000 ML IRRIGATION ONE (13:48)
[2024-12-05] MEDS: LIDOCAINE 1% INJ 10MG/ML (20 ML MDV) SQ ONE ×2 (13:55→14:38)
[2024-12-05] MEDS: HEPARIN SODIUM (1,000 UNIT/ML) 1,000 UNIT in SODIUM CHLORIDE 0.9% 1,000 ML IRRIGATION ONE (14:38)
[2024-12-05] MEDS ORDERED: ACETAMINOPHEN TAB 325 MG TAB PO PRN (15:52)
--- NOTE | 2024-12-05 15:55 | P.HPCAR ---
History of Present Illness This is Dr. Diaz dictating an H/P on this patient The patient was interviewed and examined IMPRESSION / ASSESSMENT: Recurrent narrow complex supraventricular tachycardia, symptomatic Recent episode lasting for about 1 hour a few days back Monitor has also showed nonsustained VT Preserved LV systolic function Normal coronary arteries on cardiac catheterization PLAN: Diagnose EP study for evaluation of narrow complex SVT and nonsustained VT Possible ablation HPI Patient continues to have episodes of palpitations. The most recent episode occurred a few days back lasting for about an hour and was associated with a vague sense of discomfort in the chest No loss of consciousness no undue shortness of breath when performing normal activities ROS: No fever chills or rigors, no cough, phlegm or expectoration, no nausea, vomiting or diarrhea, no hematuria, dysuria, no musculoskeletal complaints, no strokes or seizures, no skin lesions. EXAMINATION: Pulse rate in the 50s, blood pressure 149/83 mmHg Heart sounds S1-S2 normal Breath sounds are clear No JVD No lower extremity edema REVIEW OF LABS, ECG & MEDICAL DATA White count 5.3, hemoglobin 14.5, platelet count 181,000 Sodium 143, potassium 3.6 Renal function normal AST and ALT normal TSH minimally elevated 5.2 Physical Exam Vitals: Vital Signs Temp Pulse Resp BP BP Pulse Ox 12/05/24 09:42 97.9 F 58 L 16 149/83 172/102 97 Intake and Output 12/05/24 12/05/24 12/05/24 06:59 14:59 22:59 Intake Total 0 Output Total 300 Balance -300 Intake: IV 0 Output: Urine 300 Other: Weight 75.2 kg Past Medical History Past Medical History: Eye Disorder, GERD/Reflux, Pneumonia Additional Past Medical History / Comment(s): Palpitations/ elevated heart rate which pt states have been attributed to anxiety, last stress test 3-4 yrs ago and normal, recent sinus issues, pneumonia as a child, kidney stone which pt passed on his own, R elbow pain past 4 months from tennis injury, past fractured R elbow, R inguinal hernia, frequent night time urination-prostate checked and normal and pt is to have his bladder checked, bilateral eye glaucoma and start of cataracts-has some visual difficulty see dr diaz's h & p History of Any Multi-Drug Resistant Organisms: None Reported Past Surgical History: Hernia Repair, Orthopedic Surgery Additional Past Surgical History / Comment(s): L inguinal hernia repair, R shoulder surgery for fractured clavicle and ligament repair, L knee arthroscopy. hernia repair x2 Past Anesthesia/Blood Transfusion Reactions: No Reported Reaction, Motion Sickness Additional Past Anesthesia/Blood Transfusion Reaction / Comment(s): pt requests no blood products be given. takes some time to wake up Smoking Status: Never smoker - Past Family History Father Additional Family Medical History / Comment(s): Father did not go to the doctor's much. He was a smoker and a drinker and at the age of 80yrs. Mother Family Medical History: Dementia Additional Family Medical History / Comment(s): Mother at the age of 80 from alzheimer's. She had heart problems. Physical Examination Vital Signs Temp Pulse Resp BP BP Pulse Ox 12/05/24 09:42 97.9 F 58 L 16 149/83 172/102 97 Intake and Output 12/05/24 12/05/24 12/05/24 06:59 14:59 22:59 Intake Total 0 Output Total 300 Balance -300 Intake: IV 0 Output: Urine 300 Other: Weight 75.2 kg Results 12/05/24 09:47 12/05/24 09:47 Cardiac Enzymes 12/05/24 Range/Units 09:47 AST 18 (17-59) U/L CBC 12/05/24 Range/Units 09:47 WBC 5.3 (3.8-10.6) k/uL RBC 4.77 (4.30-5.90) m/uL Hgb 14.5 (13.0-17.5) gm/dL Hct 43.7 (39.0-53.0) % Plt Count 181 (150-450) k/uL Comprehensive Metabolic Panel 12/05/24 Range/Units 09:47 Sodium 143 (137-145) mmol/L Potassium 3.6 (3.5-5.1) mmol/L Chloride 107 (98-107) mmol/L Carbon Dioxide 28 (22-30) mmol/L BUN 12 (9-20) mg/dL Creatinine 0.81 (0.66-1.25) mg/dL Glucose 89 (74-99) mg/dL Calcium 9.3 (8.4-10.2) mg/dL AST 18 (17-59) U/L ALT 16 (4-49) U/L Alkaline Phosphatase 57 (38-126) U/L Total Protein 7.1 (6.3-8.2) g/dL Albumin 4.2 (3.5-5.0) g/dL Current Medications Generic Name Dose Route Start Last Admin Trade Name Freq PRN Reason Stop Dose Admin Acetaminophen 650 mg 12/05/24 15:52 Acetaminophen Tab 325 Mg Tab PO Q6HR PRN Mild Pain (Scale 1 to 3) Sodium Chloride 1,000 mls @ 20 mls/hr 12/05/24 06:11 Saline 0.9% IV 01/04/25 06:10 .Q24H KENDRICK Lactated Ringer's 1,000 mls @ 20 mls/hr 12/05/24 06:11 Lactated Ringers IV 01/04/25 06:10 .Q24H KENDRICK Acetaminophen 1,000 mg/ IV 100 mls @ 400 mls/hr 12/05/24 15:52 Solution IVPB 12/05/24 16:06 ONCE ONE Non-Formulary Medication 1 dose 12/05/24 16:00 Dorzolamide-Timolol BOTH EYES DIRECTED KENDRICK Non-Formulary Medication 1 drop 12/05/24 21:00 Netarsudil Mesylat/Latanoprost [Rocklatan 0.02%-0.005% Eye Drp] BOTH EYES HS KENDRICK Sodium Chloride 12 ml 12/05/24 15:52 Sodium Chloride 0.9% Flush 10 Ml Syringe IV Q12HR PRN Line Flush Intake and Output 12/05/24 12/05/24 12/05/24 06:59 14:59 22:59 Intake Total 0 Output Total 300 Balance -300 Intake: IV 0 Output: Urine 300 Other: Weight 75.2 kg Patient Weight 12/06/24 06:59 Weight 75.2 kg 12/05/24 09:47 12/05/24 09:47
--- NOTE | 2024-12-05 16:01 | P.EPPROC ---
- EP Procedure Note Electrophysiology Procedure Note: Indication for procedure Evaluation management of SVT Evaluation of nonsustained VT Final diagnosis Inducible AV shira reentry with ventricular stimulation Tachycardia reset with a single His refractory PAC, just outside the floor of the coronary sinus os Successful mapping and ablation of the slow pathway in the tachycardia was rendered noninducible No inducible sustained VT with ventricular stimulation protocol both on and off Isopril occasional intermittent PVCs noted Details Patient was brought to the EP lab in a fasting state. Written informed consent was obtained prior to the procedure. Venous sheaths were placed in the right left femoral veins. Diagnostic catheters were positioned in the right heart, high right atrium His bundle area coronary sinus and right ventricle. A full diagnostic EP study was performed both on and off Isopril Sinus cycle length 937 ms, QRS 116 ms, MS interval 155 ms, QT 436 ms AH 76 and HV interval 37 ms Sinus node recovery times were 1241, 1025 and 941 ms. No delta waves noted, no antegrade slow pathway noted with straight pacing AV node Wenckebach block 400 ms SVT was very easily inducible with VA decremental pacing Short septal time of less than 60 ms, VAV response to pacing maneuvers from the RV A long sheath and an irrigated tip catheter used to map the slow pathway. During AV shria reentry tachycardia was reset with a single his refractory PAC RF ablation applied at and just outside of the floor of the coronary sinus resu lted in appearance of junctional beats Good catheter contact and 35-40 W of power used here Tachycardia was rendered noninducible both on and off Isopril Thereafter on Isopril ventricular extrastimulation was performed up to triple extrastimuli Straight pacing from the RV was performed State pacing from the coronary sinus and high right atrium as well as extrastimulation was performed There was no evidence for AV shira reentry In addition ventricular stimulation as well as straight pacing and burst stimulation from the RV did not demonstrate induction of any sustained VT Very occasional ventricular triplets were induced with triple extrastimuli All catheters and sheaths were removed and hemostasis was assured with Vascade devices Patient tolerated procedure well without any acute complications Plan Stop metoprolol Follow-up with Dr. Gaxiola and PCP
--- NOTE | 2024-12-05 16:04 | P.DS ---
Providers Attending physician: Pepe Diaz Primary care physician: [facility] Course: Dear Dr. Gonsalez Patient underwent diagnostic EP study which demonstrated 1. Easily inducible AV shira reentry 2. No inducible sustained VT He underwent successful mapping and ablation of the slow pathway for the curative treatment of AV shira reentry. The tachycardia was rendered noninducible I am stopping metoprolol now and he will continue to follow-up with you and Dr. Gaxiola as before Thank you for entrusting me with the care of the patient Warm regards Sincerely Pepe Diaz Patient Condition at Discharge: Stable Plan - Discharge Summary Discharge Rx Participant: No New Discharge Prescriptions: Discontinued Metoprolol Succinate (ER) [Toprol XL] 25 mg PO HS No Action Netarsudil Mesylat/Latanoprost [Rocklatan 0.02%-0.005% Eye Drp] 1 drop BOTH EYES HS Dorzolamide-Timolol 1 dose BOTH EYES DIRECTED Discharge Medication List Dorzolamide-Timolol 1 dose BOTH EYES DIRECTED 11/30/24 [History] Netarsudil Mesylat/Latanoprost [Rocklatan 0.02%-0.005% Eye Drp] 1 drop BOTH EYES HS 11/30/24 [History] Follow up Appointment(s)/Referral(s): Christian Gaxiola MD [STAFF PHYSICIAN] - 1 Week Activity/Diet/Wound Care/Special Instructions: Post EP study - Ablation instructions 1. Keep access sites dry for 2 days. 2. No heavy lifting or straining for 2 days. 3. Avoid bending the hips repeatedly for 2 days. 4. You may go up and down stairs slowly 5. If you have had an ablation for atrial fibrillation or atrial flutter and are on a blood thinner, do not stop the blood thinner even temporarily for 3 months post ablation Call if the following is noted 1. Bleeding, increasing swelling or pain at the access sites. 2. Increasing chest discomfort, especially upon taking a deep breath. 3. Increasing shortness of breath, at rest or with exertion. 4. Undue cough / phlegm 5. Difficulty or pain while swallowing. 6. Pain or change in color in the extremities. 7. Fever, chills, rigors. 8. Increasing headache or neurologic symptoms. 9. Dizziness, fainting, palpitations Diagnosis AV shira reentry Status post successful slow pathway ablation Tachycardia rendered noninducible Plan stop metoprolol Follow-up with Dr. Gaxiola within 1 week Discharge Disposition: HOME SELF-CARE
[2024-12-05] MEDS: LACTATED RINGERS 1,000 ML IV SCH (16:49)
[2024-12-05] MEDS: SODIUM CHLORIDE 0.9% 1,000 ML IV SCH (16:49)
[2024-12-05] MEDS: ACETAMINOPHEN IV (For NPO) 1,000 MG in EMPTY BAG 1 BAG IVPB ONE (18:18)
[2024-12-05] MEDS: PATIENT'S OWN (Netarsudil Mesylat/Latanoprost [Rocklatan 0.02%-0.005% Eye Drp] 2.5 ML BOTH EYES SCH (20:57)
[2024-12-05] MEDS: SODIUM CHLORIDE 0.9% 500 ML 500 ML IV ONE (23:08)
[2024-12-05] MEDS: DORZOLAMIDE-TIMOLOL 2.23%/0.68 10ML BTL BOTH EYES SCH (23:09)
[2024-12-06 07:50] VITALS: BP 144/92; PULSE 55; RESP 16; TEMP 97.9
--- NOTE | 2024-12-06 12:01 | P.DS ---
Providers Attending physician: Pepe Diaz Primary care physician: [facility] Course: Patient is doing well. 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 Gaxiola in 1 week No cardiac medication Patient Condition at Discharge: Stable Plan - Discharge Summary Discharge Rx Participant: No New Discharge Prescriptions: Discontinued RX: Metoprolol Succinate (ER) [Toprol XL] 25 mg PO HS No Action RX: Netarsudil Mesylat/Latanoprost [Rocklatan 0.02%-0.005% Eye Drp] 1 drop BOTH EYES HS Dorzolamide-Timolol 1 dose BOTH EYES DIRECTED Discharge Medication List Dorzolamide-Timolol 1 dose BOTH EYES DIRECTED 11/30/24 [History] RX: Netarsudil Mesylat/Latanoprost [Rocklatan 0.02%-0.005% Eye Drp] 1 drop BOTH EYES HS 11/30/24 [History] Follow up Appointment(s)/Referral(s): Christain Gaxiola MD [STAFF PHYSICIAN] - 1 Week Activity/Diet/Wound Care/Special Instructions: Post EP study - Ablation instructions 1. Keep access sites dry for 2 days. 2. No heavy lifting or straining for 2 days. 3. Avoid bending the hips repeatedly for 2 days. 4. You may go up and down stairs slowly 5. If you have had an ablation for atrial fibrillation or atrial flutter and are on a blood thinner, do not stop the blood thinner even temporarily for 3 months post ablation Call if the following is noted 1. Bleeding, increasing swelling or pain at the access sites. 2. Increasing chest discomfort, especially upon taking a deep breath. 3. Increasing shortness of breath, at rest or with exertion. 4. Undue cough / phlegm 5. Difficulty or pain while swallowing. 6. Pain or change in color in the extremities. 7. Fever, chills, rigors. 8. Increasing headache or neurologic symptoms. 9. Dizziness, fainting, palpitations Diagnosis AV shira reentry Status post successful slow pathway ablation Tachycardia rendered noninducible Plan stop metoprolol Follow-up with Dr. Gaxiola within 1 week Discharge Disposition: HOME SELF-CARE
== END 2024-12-06 12:18 | disposition home or self-care (01) ==
LOC: CATHEP 09:29 → 6NMEDSUR 15:42 → CATHEP 12-06 12:18
PROVIDERS: ATTEND Internal Medicine Clinical Cardiac Electrophysiology
DX: I44.1 Atrioventricular block, second degree (principal); I47.19 Other supraventricular tachycardia; K21.9 Gastro-esophageal reflux disease without esophagitis; Z98.890 Other specified postprocedural states
CPT/HCPCS: 93623; 93653; 84439; 80053; 84443; 85025; C1894; C1769 ×2; C1760 ×2; C1766; C1730 ×3; C1732; J2250; J1200; J1644 ×2; J2003; J3010; J1171; J0131; J2704

== ENCOUNTER 2025-02-15 06:14 | Day surgery (SDC) | payer MEDICARE ==
[2025-02-13 09:18] VITALS: BMI 23.6
[~2025-02-15 06:14] MED LIST: PILOCARPINE 2% OPHTH DROPS 15 ML BTL OP PRN; TETRACAINE 0.5% OPHTH (PF) DROPS 4 ML BTL OP PRN
[2025-02-15] MEDS ORDERED: LIDOCAINE 1% (10MG/ML) FOR IV START INTRADERMA PRN (06:40)
[2025-02-15 06:58] VITALS: TEMP 97
[2025-02-15] MEDS: PILOCARPINE 2% OPHTH DROPS 15 ML BTL OP PRN (07:00)
[2025-02-15] MEDS: IV FLUID CONTINUATION 1,000 ML IV ONE (07:04)
[2025-02-15] MEDS: LACTATED RINGERS 1,000 ML IV SCH (07:11)
[2025-02-15] MEDS ORDERED: fentaNYL (PF) 50 MCG/ML 2 ML AMP ONE (07:25)
[2025-02-15] MEDS ORDERED: MIDAZOLAM 2 MG/2 ML VIAL ONE (07:25)
[2025-02-15] MEDS: EPINEPHrine (PF) 0.3 ML in BALANCED SALT IRRIG SOLN COMB2 500 ML IRRIGATION ONE (07:53)
[2025-02-15] MEDS: MOXIFLOXACIN HCL 0.5% DROPS 3 ML BTL OP PRN (07:55)
[2025-02-15] MEDS: TRYPAN BLUE 0.06% SYRINGE 0.5 ML SYRINGE MISCELLANE ONE (07:56)
[2025-02-15] MEDS: TIMOLOL 0.5% OPHTH DROPS 5 ML BTL OP PRN (07:56)
[2025-02-15] MEDS: LIDOCAINE 1% PF 10 MG/ML (5 ML AMP) SQ ONE (07:56)
[2025-02-15] MEDS: BALANCED SALT IRRIG SOLN COMB2 15 ML IRRIG.SOLN INTRAOCULA ONE (07:57)
--- NOTE | 2025-02-15 08:05 | P.OP ---
Date of Procedure: 02/15/25 Preoperative Diagnosis: POag Postoperative Diagnosis: same Procedure(s) Performed: goniotomy Implants: none Anesthesia: MAC Surgeon: Federico Warner Pathology: none sent Condition: stable Disposition: same day Indications for Procedure: poor glaucoma contol Operative Findings: no complications
[2025-02-15] MEDS: ePHEDrine 50 MG/ML 1 ML VIAL IVP STA (08:41)
[2025-02-15 10:14] VITALS: BP 142/81; PULSE 60; RESP 17
--- NOTE | 2025-02-20 14:20 | OP ---
OPERATIVE REPORT DATE OF SERVICE : PROCEDURE PERFORMED: Goniotomy of the left eye. PREOPERATIVE DIAGNOSIS: Primary open-angle glaucoma, severe stage, both eyes. POSTOPERATIVE DIAGNOSIS: Primary open-angle glaucoma, severe stage, both eyes. ANESTHESIA: Topical. ESTIMATED BLOOD LOSS: Less than 5 mL. SPECIMENS TAKEN: None. NARRATIVE: After obtaining the appropriate consent, the patient was brought into the operating room. There, he was placed under cardiac monitoring and prepped and draped in the usual sterile manner. He was approached from his left temporal side, and at the 3 o'clock position, a 2.5 mm keratome was used to create a self-sealing corneal flap incision. Through this opening, 1% Xylocaine MPF 50:50 mix with balanced salt solution was injected into the anterior chamber. This was followed by Trypan blue, which was allowed to stain the eye about 90 seconds. This was then irrigated away and the anterior chamber was then stabilized using Viscoat. The patient was then asked to rotate approximately 45 degrees away to his right, maintaining a gaze in the general direction. A gonioscopy lens was placed on the patient's cornea and a KDB goniotomy knife was advanced across the anterior chamber using a socorro and meet method; approximately, 4 to 4.5 clock hours of trabecular meshwork was removed with the goniotomy knife. The patient was then asked to rotate back to the normal supine position and irrigation and aspiration was used to remove all remaining viscoelastic from within the anterior chamber. The eye was filled with balanced salt solution to slightly above normal intra-ocular pressure and the wound was confirmed watertight. He then received 2 drops of 0.5% timolol, followed by 2 drops of 0.5% moxifloxacin and was then lightly patched and shielded in the usual manner. There were no complications from the procedure. He tolerated the procedure well and was returned to outpatient recovery in good condition. MMODL / IJN: [id number] /
== END 2025-02-15 10:13 | disposition home or self-care (01) ==
LOC: OR 06:14
PROVIDERS: ATTEND Ophthalmology
DX: H40.1133 Primary open-angle glaucoma, bilateral, severe stage (principal)
CPT/HCPCS: 65820; J2250; J0171; J2003; J3010